=== PATIENT | female | born 1980 | race Two or more races ===

== ENCOUNTER 2023-12-12 20:04 | Emergency (ER) | payer SELFPAY ==
[~2023-12-12] VITALS: Ht 175.3 cm; Wt 106.4 kg
[2023-12-12 20:46] LABS: Hemoglobin 11.3 g/dL (12.2-16.2); Red Cell Distribution Width 16.9 % (11.8-14.3); White Blood Cell 3.8 10^3/uL (4.4-10.8)
[2023-12-12 20:48] LABS: Mean Corpuscular Hemoglobin 27.3 pg (28.0-32.0); Mean Corpuscular Hgb Conc. 33.3 g/dL (32.0-36.0); Mean Corpuscular Volume 82.1 fL (80.0-100.0); Red Blood Cells 4.14 10^6/uL (4.0-5.20)
[2023-12-12 20:54] LABS: Urine Bacteria NONE SEEN /hpf (None Seen); Urine Blood 3+ /uL (Negative); Urine Clarity HAZY (Clear); Urine Color PINK (Yellow); Urine Protein, UAD 1+ (Negative); Urine Specific Gravity 1.022 (1.001-1.035); Urine Urobilinogen Normal (Negative); Urine WBC 35 /hpf (0 - 5); Urine pH 6.5 (5.0-8.0)
[2023-12-12 21:01] LABS: Band Neutrophils % (manual) 0; Basophils % (manual) 0 (0.0-2.0); Blast Cells 0; Metamyelocytes % 0; Myelocytes % 0; Promyelocytes % 0
[2023-12-12 21:02] LABS: INR 0.98 (0.9-1.15); Partial Thromboplastin Time 30.9 SEC (24.5-34.5); Prothrombin Time 10.3 sec (9.3-11.8)
[2023-12-12 21:30] LABS: Eosinophils % (manual) 5 (0-7); Lymphocytes % (manual) 62 (10.0-50.0); Monocytes % (manual) 3 (0-12); Platelet Estimate Adequate; Reactive Lymphocytes 5
[2023-12-13] MEDS ORDERED: CIPR-173 PO ×3 (00:44→01:04)
[2023-12-13 01:04] VITALS: BP 131/102; PULSE 79; RESP 18; TEMP 98; O2SAT 98
== END 2023-12-13 02:14 | disposition home or self-care (01) ==
LOC: ER 20:04
DX: D25.9 Leiomyoma of uterus, unspecified (principal); N39.0 Urinary tract infection, site not specified; N93.9 Abnormal uterine and vaginal bleeding, unspecified; F15.90 Other stimulant use, unspecified, uncomplicated; Z98.890 Other specified postprocedural states; Z88.8 Allergy status to other drugs, medicaments and biological substances; Z79.899 Other long term (current) drug therapy
CPT/HCPCS: 36415; 76856; 81001; 85007; 85027; 85610; 85730